=== PATIENT | male | born 1955 | race Caucasian/White ===

== ENCOUNTER 2017-07-18 19:46 | Inpatient (IN) | payer OTHER ==
--- NOTE | 2017-07-18 20:56 | RAD ---
Indication: Syncope. Hit head. Comparison: No relevant prior exams available on the [facility] PACS for comparison. Technique: Upright AP 2033 hours Report: Mild bilateral lower lung zone linear subsegmental atelectasis. No focal pulmonary lesion, pleural effusion, pneumothorax. Upper normal heart size accounting for AP technique. Unremarkable central pulmonary vasculature and mediastinal contours. No thoracic fractures evident. IMPRESSION: Mild bibasilar linear subsegmental atelectasis.
[2017-07-18] MEDS: NS 0.9% 1000 ML* 2,000 ML IV ONE (21:08)
[2017-07-18 21:16] LABS: Hematocrit 39 % (42-52); Hemoglobin 13.4 g/dl (14.0-18.0); Mean Corpuscular HGB Conc 34 g/dl (31-36); Mean Corpuscular Hemoglobin 32 pg (27-31); Mean Corpuscular Volume 94 fL (80-94); Mean Platelet Volume 8 um3 (7.4-10.4); Red Blood Count 4.14 10^6/ul (4.0-5.4); Red Cell Distribution Width 14 % (10.5-15); White Blood Count 12.9 10^3/ul (3.5-10.8)
--- NOTE | 2017-07-18 21:17 | RAD ---
Indication: Syncope; fell and hit head. Comparison: No relevant prior exams available on the [facility] PACS for comparison. Technique: Noncontrast CT vertex of skull through foramen magnum. Report: The sulci, ventricles, and basal cisterns are normal for age. Reza matter white matter differentiation is preserved without evidence for edema. 0.7 cm diameter normal variant dilated perivascular space versus chronic lacunar infarct at the caudal aspect of the LEFT basal ganglia. No intra or extra axial hemorrhage, mass, or fluid collection detected. Unremarkable visualized orbital contents. Unremarkable calvarium and skull base. Unremarkable scalp. The visualized paranasal sinuses and mastoid air spaces are clear. IMPRESSION: 1. No acute intracranial process evident. 2. 0.7 cm diameter normal variant dilated perivascular space versus chronic lacunar infarct at the caudal aspect of the LEFT basal ganglia.
[2017-07-18 21:31] LABS: BUN/Creatinine Ratio 14.3 (8-20); Calcium 8.9 mg/dL (8.6-10.3); EGFR African American 119.9 (>60); EGFR Non-African American 93.2 (>60); Globulin 2.8 g/dL (2-4); Magnesium 2.2 mg/dL (1.9-2.7); Potassium 4.4 mmol/L (3.5-5.0); Total Bilirubin 0.5 mg/dL (0.2-1.0); Total Protein 6.8 g/dL (6.4-8.9)
[2017-07-18] MEDS ORDERED: CMCS: Melatonin (NF) 3 MG TAB PO PRN (22:08)
[2017-07-18] MEDS ORDERED: Ondansetron INJ* 2 MG/ML VIAL IV PRN (22:08)
[2017-07-18] MEDS ORDERED: traMADol TAB* 50 MG PO PRN (22:08)
[2017-07-18] MEDS ORDERED: Acetaminophen TAB* 325 MG PO PRN (22:08)
[2017-07-18] MEDS ORDERED: NS 0.9% 1000 ML* 1,000 ML IV SCH (22:15)
[2017-07-18 22:16] LABS: Urine Bilirubin Negative (Negative); Urine Glucose Negative (Negative); Urine Nitrite Negative (Negative)
--- NOTE | 2017-07-18 23:25 | HP ---
H&P (Free Text) History and Physical: PCP: none Date/Time: 07/18/20172204 CC: syncope HPI: Mr Carrington is a 61YO male w/o significant medical history who reports digging outdoors at home in the heat for 3-4 hours, drank some water, "a couple of beers", and went to a restaurant to eat where he suddenly became light- headed and syncopized for <2 minutes. He states it felt similar to a time when he cut his foot badly and "nearly passed-out at the sight of blood". Upon awakening, he recalls being sweaty and nauseous, but denies palpitations, SOB, and chest pain. During his evaluation in [facility] ED, he developed an asymptomatic burst of VT prompting this request for admission. K is 4.4. Mg++ is 2.2. PMedHx denies Ambulatory Orders NK [No Home Medications Reported] 07/18/17 Allergies No Known Allergies Allergy (Verified 07/18/17 20:01) PSurgHx R ACL repair L shoulder surgery SocHx: 3-4 beers ~3x/week, denies tobacco HX, admits to occasional marijuana use last time today; , lives with his children; full code status FamHx: Mother passed of "heart issue" at 88. Father passed of "brain cancer" at 74. Of 6 siblings, he only knows of a sister with TBI 2nd MVA. ROS: as above, otherwise reviewed and all were negative vitals: Vital Signs Temp 37.3 C 07/18/17 19:53 Pulse 69 07/18/17 23:00 Resp 22 07/18/17 23:00 BP 135/88 07/18/17 22:30 Pulse Ox 93 07/18/17 23:00 Intake & Output 07/17/17 07/18/17 07/18/17 23:59 11:59 23:59 Weight 99.79 kg Constitutional: NAD, normally developed, overweight white male HEENM: atraumatic; sclera/conjunctiva: non-icteric/mildly injected; blephara: normal; hearing: clinically intact; oropharynx: clear, mucosa moist Neck: soft tissue: non-tender; thyroid: normal Pulmonary: clear to auscultation bilaterally, good aeration, no accessory muscle use CV: RR/RR, normal S1S2, no carotid bruit, no jugular venous distention, 2+ B DP/ PT, no edema Abdominal: soft, non-distended, non-tender, no rebound/guarding/rigidity, normoactive bowel sounds, no hepatosplenomegaly or masses, no costovertebral angle tenderness Musculoskeletal: general: grossly intact; gait: stable Integumental: normal appearance and texture of exposed skin Psychiatric orientation: AA&O to PPS affect: calm mood: cooperative eye contact: good to fair content: reliable responses: timely insight: fair to good Testing: Lab Results 07/18/17 07/18/17 07/18/17 Range/Units 21:06 21:06 21:06 WBC 12.9 H (3.5-10.8) 10^3/ul RBC 4.14 (4.0-5.4) 10^6/ul Hgb 13.4 L (14.0-18.0) g/dl Hct 39 L (42-52) % MCV 94 (80-94) fL MCH 32 H (27-31) pg MCHC 34 (31-36) g/dl RDW 14 (10.5-15) % Plt Count 186 (150-450) 10^3/ul MPV 8 (7.4-10.4) um3 Neut % (Auto) 83.3 H (38-83) % Lymph % (Auto) 8.6 L (25-47) % [place] % (Auto) 7.2 (1-9) % Eos % (Auto) 0.5 (0-6) % Baso % (Auto) 0.4 (0-2) % Absolute Neuts (auto) 10.7 H (1.5-7.7) 10^3/ul Absolute Lymphs (auto) 1.1 (1.0-4.8) 10^3/ul Absolute Monos (auto) 0.9 H (0-0.8) 10^3/ul Absolute Eos (auto) 0.1 (0-0.6) 10^3/ul Absolute Basos (auto) 0 (0-0.2) 10^3/ul Absolute Nucleated RBC 0 10^3/ul Nucleated RBC % 0 INR (Anticoag Therapy) (0.89-1.11) APTT (26.0-36.3) seconds Sodium 135 (133-145) mmol/L Potassium 4.4 (3.5-5.0) mmol/L Chloride 104 (101-111) mmol/L Carbon Dioxide 23 (22-32) mmol/L Anion Gap 8 (2-11) mmol/L BUN 12 (6-24) mg/dL Creatinine 0.84 (0.67-1.17) mg/dL Est GFR ( Amer) 119.9 (>60) Est GFR (Non-Af Amer) 93.2 (>60) BUN/Creatinine Ratio 14.3 (8-20) Glucose 99 (70-100) mg/dL Lactic Acid (0.5-2.0) mmol/L Calcium 8.9 (8.6-10.3) mg/dL Magnesium 2.2 (1.9-2.7) mg/dL Total Bilirubin 0.50 (0.2-1.0) mg/dL AST 28 (13-39) U/L ALT 24 (7-52) U/L Alkaline Phosphatase 54 (34-104) U/L Total Creatine Kinase 188 (10-223) U/L Troponin I 0.00 (<0.04) ng/mL B-Natriuretic Peptide 52 ( - 100) pg/mL Total Protein 6.8 (6.4-8.9) g/dL Albumin 4.0 (3.2-5.2) g/dL Globulin 2.8 (2-4) g/dL Albumin/Globulin Ratio 1.4 (1-3) Urine Color Urine Appearance Urine pH (5-9) Ur Specific [place] (1.010-1.030) Urine Protein (Negative) Urine Ketones (Negative) Urine Blood (Negative) Urine Nitrate (Negative) Urine Bilirubin (Negative) Urine Urobilinogen (Negative) Ur Leukocyte Esterase (Negative) Urine Glucose (Negative) 07/18/17 07/18/17 07/18/17 Range/Units 21:06 21:23 22:06 WBC (3.5-10.8) 10^3/ul RBC (4.0-5.4) 10^6/ul Hgb (14.0-18.0) g/dl Hct (42-52) % MCV (80-94) fL MCH (27-31) pg MCHC (31-36) g/dl RDW (10.5-15) % Plt Count (150-450) 10^3/ul MPV (7.4-10.4) um3 Neut % (Auto) (38-83) % Lymph % (Auto) (25-47) % [place] % (Auto) (1-9) % Eos % (Auto) (0-6) % Baso % (Auto) (0-2) % Absolute Neuts (auto) (1.5-7.7) 10^3/ul Absolute Lymphs (auto) (1.0-4.8) 10^3/ul Absolute Monos (auto) (0-0.8) 10^3/ul Absolute Eos (auto) (0-0.6) 10^3/ul Absolute Basos (auto) (0-0.2) 10^3/ul Absolute Nucleated RBC 10^3/ul Nucleated RBC % INR (Anticoag Therapy) 0.91 (0.89-1.11) APTT 25.2 L (26.0-36.3) seconds Sodium (133-145) mmol/L Potassium (3.5-5.0) mmol/L Chloride (101-111) mmol/L Carbon Dioxide (22-32) mmol/L Anion Gap (2-11) mmol/L BUN (6-24) mg/dL Creatinine (0.67-1.17) mg/dL Est GFR ( Amer) (>60) Est GFR (Non-Af Amer) (>60) BUN/Creatinine Ratio (8-20) Glucose (70-100) mg/dL Lactic Acid 1.5 (0.5-2.0) mmol/L Calcium (8.6-10.3) mg/dL Magnesium (1.9-2.7) mg/dL Total Bilirubin (0.2-1.0) mg/dL AST (13-39) U/L ALT (7-52) U/L Alkaline Phosphatase (34-104) U/L Total Creatine Kinase (10-223) U/L Troponin I (<0.04) ng/mL B-Natriuretic Peptide ( - 100) pg/mL Total Protein (6.4-8.9) g/dL Albumin (3.2-5.2) g/dL Globulin (2-4) g/dL Albumin/Globulin Ratio (1-3) Urine Color Yellow Urine Appearance Clear Urine pH 6.0 (5-9) Ur Specific [place] 1.005 L (1.010-1.030) Urine Protein Negative (Negative) Urine Ketones Negative (Negative) Urine Blood Negative (Negative) Urine Nitrate Negative (Negative) Urine Bilirubin Negative (Negative) Urine Urobilinogen Negative (Negative) Ur Leukocyte Esterase Negative (Negative) Urine Glucose Negative (Negative) ECG, personally reviewed: NSR rate 76, no ischemia CXR, personally reviewed: IMPRESSION: Mild bibasilar linear subsegmental atelectasis. CT brain WO, personally reviewed: IMPRESSION: 1. No acute intracranial process evident. 2. 0.7 cm diameter normal variant dilated perivascular space versus chronic lacunar infarct at the caudal aspect of the LEFT basal ganglia. Impression: 61M presenting with syncope and finding of brief VT on ED telemetry DIAGNOSIS & PLAN Primary syncope : dDx: VT vs seizure vs other : telemetry : Joceline Gonzalez MD cardiology consulted by Janeth Velasquez MD ED; will evaluate in AM : supplemental oxygen : K >4, Mg >2 : ICU monitoring : ECHO in AM : trend troponin : add on TSH to ED labs : supportive care Admission Rational: inpatient for syncope felt to be 2nd VT DVTp: heparin SQ @ SCDs Code Status: full HCP: children
--- NOTE | 2017-07-18 23:55 | ED ---
Moise Barnhart Rebecca, scribed for Tyrese Velasquez on 07/18/17 at 8 . Syncope/Near Syncope - HPI Summary HPI Summary: Pt is a 61 y/o M BIBA who presents to ED s/p syncopal episode. At approximately 1900 today the pt was out to dinner with his partner when he had sudden onset LOC while sitting down. Partner reports that he fell onto bricks that were next to the stove in the restaurant and maintained LOC for 1-2 minutes. Pt attributes LOC to exhaustion, stating he had been doing physical work outside for 3 hours and was outside in the sun for an extended time today. Sx alleviated by spontaneous resolution. Denies JASON, CP and palpitations prior to and after episode. Denies weakness, numbness and confusion. No prior similar episodes. Reports that he had about 5 beers tonight and denies any other drug use. No PMHx seizures. - History Of Current Complaint Chief Complaint: EDSyncope Time Seen by Provider: 07/18/17 20:02 Hx Obtained From: Patient, Family/Regional Manager - Partner Onset/Duration: Sudden Onset, Lasting Minutes - 1-2 minutes, Resolved Timing: Frequency Of Episodes - 1 episode, lasting 1-2 minutes Context: Witnessed, Loss Of Consciousness Activity At Onset: At Rest Aggravating Factor(s): Other - Exhaustion, per pt Alleviating Factor(s): Spontaneous Resolution Associated Signs And Symptoms: Negative Frequency: Episodes x___ - 1, Episodes Lasting ____ (in Mins/Days/Weeks/Years) - 1-2 minutes - Allergies/Home Medications Allergies/Adverse Reactions: Allergies Allergy/AdvReac Type Severity Reaction Status Date / Time No Known Allergies Allergy Verified 07/18/17 20:01 Home Medications: Home Medications NK [No Home Medications Reported] 07/18/17 [History Confirmed 07/18/17] PMH/Surg Hx/FS Hx/Imm Hx Endocrine/Hematology History: Denies: Hx Diabetes Cardiovascular History: Denies: Hx Coronary Artery Disease, Hx Hypertension Neurological History: Denies: Hx Seizures - Immunization History Date of Tetanus Vaccine: unknown Infectious Disease History: No Infectious Disease History: Denies: Traveled Outside the [place] in Last 30 Days - Family History Known Family History: Negative: Cardiac Disease, Hypertension, Diabetes - Social History Alcohol Use: Occasionally Substance Use Type: Reports: None Smoking Status (MU): Never Smoked Tobacco Review of Systems Negative: Palpitations, Chest Pain Neurological: Other - NEGATIVE: confusion Positive: Syncope - 1 epiosde of LOC - resolved. Negative: Headache, Weakness, Numbness All Other Systems Reviewed And Are Negative: Yes Physical Exam - Summary Physical Exam Summary: Appearance: Well appearing, no pain distress Skin: warm, dry, reflects adequate perfusion Head/face: normal Eyes: EOMI, CHERRY ENT: normal Neck: supple, nontender Respiratory: CTA, breath sounds present Cardiovascular: RRR, pulses symmetrical Abdomen: nontender, soft Bowel: present Musculoskeletal: normal, strength/ROM intact Neuro: normal, sensory motor intact, A&Ox3 Triage Information Reviewed: Yes Vital Signs On Initial Exam: Initial Vitals BP 122/75 07/18/17 19:51 Vital Signs Reviewed: Yes - [place] Coma Scale Best Eye Response: 4 - Spontaneous Best Motor Response: 6 - Obeys Commands Best Verbal Response: 5 - Oriented Coma Scale Total: 15 Diagnostics - Vital Signs Vital Signs Temp Pulse Resp BP Pulse Ox 07/18/17 20:00 72 20 108/91 93 07/18/17 19:53 99.1 F 67 17 122/75 93 07/18/17 19:51 122/75 - Laboratory Lab Results: Lab Results 07/18/17 07/18/17 07/18/17 Range/Units 21:06 21:06 21:06 WBC 12.9 H (3.5-10.8) 10^3/ul RBC 4.14 (4.0-5.4) 10^6/ul Hgb 13.4 L (14.0-18.0) g/dl Hct 39 L (42-52) % MCV 94 (80-94) fL MCH 32 H (27-31) pg MCHC 34 (31-36) g/dl RDW 14 (10.5-15) % Plt Count 186 (150-450) 10^3/ul MPV 8 (7.4-10.4) um3 Neut % (Auto) 83.3 H (38-83) % Lymph % (Auto) 8.6 L (25-47) % [place] % (Auto) 7.2 (1-9) % Eos % (Auto) 0.5 (0-6) % Baso % (Auto) 0.4 (0-2) % Absolute Neuts (auto) 10.7 H (1.5-7.7) 10^3/ul Absolute Lymphs (auto) 1.1 (1.0-4.8) 10^3/ul Absolute Monos (auto) 0.9 H (0-0.8) 10^3/ul Absolute Eos (auto) 0.1 (0-0.6) 10^3/ul Absolute Basos (auto) 0 (0-0.2) 10^3/ul Absolute Nucleated RBC 0 10^3/ul Nucleated RBC % 0 INR (Anticoag Therapy) (0.89-1.11) APTT (26.0-36.3) seconds Sodium 135 (133-145) mmol/L Potassium 4.4 (3.5-5.0) mmol/L Chloride 104 (101-111) mmol/L Carbon Dioxide 23 (22-32) mmol/L Anion Gap 8 (2-11) mmol/L BUN 12 (6-24) mg/dL Creatinine 0.84 (0.67-1.17) mg/dL Est GFR ( Amer) 119.9 (>60) Est GFR (Non-Af Amer) 93.2 (>60) BUN/Creatinine Ratio 14.3 (8-20) Glucose 99 (70-100) mg/dL Lactic Acid (0.5-2.0) mmol/L Calcium 8.9 (8.6-10.3) mg/dL Magnesium 2.2 (1.9-2.7) mg/dL Total Bilirubin 0.50 (0.2-1.0) mg/dL AST 28 (13-39) U/L ALT 24 (7-52) U/L Alkaline Phosphatase 54 (34-104) U/L Total Creatine Kinase 188 (10-223) U/L Troponin I 0.00 (<0.04) ng/mL B-Natriuretic Peptide 52 ( - 100) pg/mL Total Protein 6.8 (6.4-8.9) g/dL Albumin 4.0 (3.2-5.2) g/dL Globulin 2.8 (2-4) g/dL Albumin/Globulin Ratio 1.4 (1-3) TSH Pending 07/18/17 07/18/17 Range/Units 21:06 21:23 WBC (3.5-10.8) 10^3/ul RBC (4.0-5.4) 10^6/ul Hgb (14.0-18.0) g/dl Hct (42-52) % MCV (80-94) fL MCH (27-31) pg MCHC (31-36) g/dl RDW (10.5-15) % Plt Count (150-450) 10^3/ul MPV (7.4-10.4) um3 Neut % (Auto) (38-83) % Lymph % (Auto) (25-47) % [place] % (Auto) (1-9) % Eos % (Auto) (0-6) % Baso % (Auto) (0-2) % Absolute Neuts (auto) (1.5-7.7) 10^3/ul Absolute Lymphs (auto) (1.0-4.8) 10^3/ul Absolute Monos (auto) (0-0.8) 10^3/ul Absolute Eos (auto) (0-0.6) 10^3/ul Absolute Basos (auto) (0-0.2) 10^3/ul Absolute Nucleated RBC 10^3/ul Nucleated RBC % INR (Anticoag Therapy) 0.91 (0.89-1.11) APTT 25.2 L (26.0-36.3) seconds Sodium (133-145) mmol/L Potassium (3.5-5.0) mmol/L Chloride (101-111) mmol/L Carbon Dioxide (22-32) mmol/L Anion Gap (2-11) mmol/L BUN (6-24) mg/dL Creatinine (0.67-1.17) mg/dL Est GFR ( Amer) (>60) Est GFR (Non-Af Amer) (>60) BUN/Creatinine Ratio (8-20) Glucose (70-100) mg/dL Lactic Acid 1.5 (0.5-2.0) mmol/L Calcium (8.6-10.3) mg/dL Magnesium (1.9-2.7) mg/dL Total Bilirubin (0.2-1.0) mg/dL AST (13-39) U/L ALT (7-52) U/L Alkaline Phosphatase (34-104) U/L Total Creatine Kinase (10-223) U/L Troponin I (<0.04) ng/mL B-Natriuretic Peptide ( - 100) pg/mL Total Protein (6.4-8.9) g/dL Albumin (3.2-5.2) g/dL Globulin (2-4) g/dL Albumin/Globulin Ratio (1-3) TSH Result Diagrams: 07/18/17 21:06 07/18/17 21:06 Lab Statement: Any lab studies that have been ordered have been reviewed, and results considered in the medical decision making process. - Radiology CXR Xray Interpretation: Positive (See Comments) - Mild bibasilar linear subsegmental atelectasis. ED physician reviewed radiology report and agrees. Radiology Interpretation Completed By: Radiologist - CT Brain CT CT Interpretation: No Acute Changes - 1. No acute intracranial process evident. 2. 0.7 cm diameter normal variant dilated perivascular space versus chronic lacunar infarct at the caudal aspect of the LEFT basal ganglia. ED physician reviewed radiology report and agrees. CT Interpretation Completed By: Radiologist - EKG 2049 Cardiac Rate: NL - 76 bpm EKG Rhythm: Sinus Rhythm EKG Interpretation: No acute changes Re-Evaluation - Re-Evaluation First Eval Re-Evaluation Time: 22:19 Comment: Discussed results and plan to admit. Course/Dx Assessment/Plan: Pt is a 61 y/o M BIBA who presents to ED s/p syncopal episode. At approximately 1900 today the pt was out to dinner with his partner when he had sudden onset LOC while sitting down. Partner reports that he fell onto bricks that were next to the stove in the restaurant and maintained LOC for 1-2 minutes. Pt attributes LOC to exhaustion, stating he had been doing physical work outside for 3 hours and was outside in the sun for an extended time today. Sx alleviated by spontaneous resolution. Denies JASON, CP and palpitations prior to and after episode. Denies weakness, numbness and confusion. CXR reveals mild bibasilar linear subsegmental atelectasis. EKG is sinus rhythm with no acute changes. Brain CT reveals no acute findings. Troponin of 0.00. In the ED course , pt received fluids. Discussed care of pt with Dr. Castaneda who accepts pt for admission. Discussed care of pt with Dr. Gonzalez who will evaluate the pt in the morning and requsted an update if the pt's status changes. Pt will be admitted with Dx of syncope and nonsustained V-tach. Pt understands and agrees. Patient medications reviewed this visit. - Diagnoses Provider Diagnoses: Syncope, Nonsustained ventricular tachycardia - Physician Notifications Discussed Care of Patient With: Brandon Castaneda Time Discussed With Above Provider: 21:55 Instructed by Provider To: Other - Accepts pt for admission. Discussed care of pt with Dr. Gonzalez at 2212 who will evaluate the pt in the morning and requsted an update if the pt's status changes. - Critical Care Time Critical Care Time: 30-74 min Discharge - Discharge Plan Condition: Stable Disposition: ADMITTED TO [facility] The documentation as recorded by the Moise alicea Rebecca accurately reflects the service I personally performed and the decisions made by Eva fraser Emmanuel.
[2017-07-19] LABS: TSH (Thyroid Stimulating Horm) 8.19 mcIU/mL (0.34-5.60)
[2017-07-19] MEDS: Omeprazole CAP* 20 MG PO SCH (05:51)
[2017-07-19 06:34] LABS: Hematocrit 36 % (42-52); Hemoglobin 12.5 g/dl (14.0-18.0); Mean Corpuscular HGB Conc 34 g/dl (31-36); Mean Corpuscular Hemoglobin 33 pg (27-31); Mean Corpuscular Volume 94 fL (80-94); Mean Platelet Volume 8 um3 (7.4-10.4); Red Blood Count 3.84 10^6/ul (4.0-5.4); Red Cell Distribution Width 14 % (10.5-15); White Blood Count 6.8 10^3/ul (3.5-10.8)
--- NOTE | 2017-07-19 09:36 | PN ---
Subjective Date of Service: 07/19/17 Interval History: Patient admitted overnight w/ syncope, had documented VT on monitor in ER. In ICU overnight, had 5-beat run SVT. Patient denies palpitations, SOB, chest pain. Family History: Unchanged from Admission Social History: Unchanged from Admission Past Medical History: Unchanged from Admission Objective Active Medications: Acetaminophen (Tylenol Tab*) 650 mg PO Q6H PRN PRN Reason: FEVER/PAIN Heparin Sodium (Porcine) (Heparin Vial(*)) 5,000 units SUBCUT 0600,1400,2200 [facility] Sodium Chloride (Ns 0.9% 1000 Ml*) 1,000 mls @ 50 mls/hr IV PER RATE [facility] Last Admin: 07/19/17 00:40 Dose: 50 mls/hr Melatonin (Melatonin (Nf)) 3 mg PO BEDTIME PRN; Protocol PRN Reason: Sleep Omeprazole (Prilosec Cap*) 20 mg PO DAILY@0600 [facility] Last Admin: 07/19/17 05:51 Dose: Not Given Ondansetron HCl (Zofran Inj*) 4 mg IV Q6H PRN PRN Reason: NAUSEA Tramadol HCl (Ultram*) 50 mg PO Q6H PRN PRN Reason: PAIN Vital Signs 07/19/17 07/19/17 07/19/17 02:30 02:45 03:00 Temperature Pulse Rate 57 55 62 Respiratory 19 19 20 Rate Blood Pressure 129/82 129/76 130/86 (mmHg) O2 Sat by Pulse 96 95 95 Oximetry 07/19/17 07/19/17 07/19/17 04:01 05:00 05:01 Temperature Pulse Rate 55 56 59 Respiratory 18 20 19 Rate Blood Pressure 119/82 (mmHg) O2 Sat by Pulse 94 91 94 Oximetry 07/19/17 07/19/17 07/19/17 06:00 06:01 07:00 Temperature Pulse Rate 54 53 57 Respiratory 17 17 19 Rate Blood Pressure 129/90 133/85 (mmHg) O2 Sat by Pulse 95 95 96 Oximetry 07/19/17 07/19/17 07/19/17 07:01 07:45 08:43 Temperature 37.1 C Pulse Rate 56 Respiratory 17 Rate Blood Pressure (mmHg) O2 Sat by Pulse 96 95 Oximetry Oxygen Devices in Use Now: None Appearance: no distress Eyes: No Scleral Icterus Ears/Nose/Mouth/Throat: Clear Oropharnyx Neck: NL Appearance and Movements; NL JVP Respiratory: Clear to Auscultation Cardiovascular: NL Sounds; No Murmurs; No JVD, RRR Abdominal: NL Sounds; No Tenderness; No Distention Lymphatic: No Cervical Adenopathy Extremities: No Edema Skin: No Rash or Ulcers Neurological: Alert and Oriented x 3 Lines/Tubes/Other Access: Clean, Dry and Intact Peripheral IV Result Diagrams: 07/19/17 06:15 07/18/17 21:06 Additional Lab and Data: Lab Results Troponin negative X3 Diagnostic Imaging: echo full read pending, EF normal per Dr Gonzalez Assess/Plan/Problems-Billing Assessment: 61 year old man w/ no PMH, admitted w/ syncope and VT on monitor in ED - Patient Problems (1) Syncope Current Visit: Yes Status: Acute Priority: High Code(s): R55 - SYNCOPE AND COLLAPSE SNOMED Code(s): 322699004 Comment: Discussed differential of syncope with patient, including vagal issues, and hypovolemia. He is interested in alternative explanations that do not include rhythm disturbance. (2) Ventricular tachycardia (paroxysmal) Current Visit: Yes Status: Acute Priority: High Code(s): I47.2 - VENTRICULAR TACHYCARDIA SNOMED Code(s): 36008803 Comment: -Discussed electrical, structural, and ischemic causes of VT with patient. Strongly advised staying overnight for treadmill stress test. -transferred to telemetry (3) Hypothyroid Current Visit: Yes Status: Acute Priority: Medium Code(s): E03.9 - HYPOTHYROIDISM, UNSPECIFIED SNOMED Code(s): 78122401 Comment: -TSH consistent with hypothyroid state -unlikely related to arrhythmia -Will start Synthroid. Status and Disposition: Due to severity of rhythm, requires another 24h of telemetry monitoring and then stress test
--- NOTE | 2017-07-19 10:56 | ECHO ---
Patient: [facility] Rec#: [id number] : 1955 Date: 07/19/2017 Age: 61y Height: 185.4 cm / 73.0 in Weight: 99.8 kg / 220.0 lbs Sex: M BSA: 2.2 Room#: ICU 3 Admit Date#: 07/18/2017 Type: Inpatient Referring: Brandon Castaneda MD Reading: Laisha Gonzalez MD Railroad Accountant: Barbara Venegas RN RDCS Transthoracic Echocardiogram Indication: Syncope, V. Tach BP: 133/85 HR: 69 Rhythm: NSR with PVCs Findings History: No significant prior medical history, ETOH use Technical Comments: The study quality is fair. Completed at 0840. Left Ventricle: The left ventricular chamber size is mildly dilated. Mild concentric left ventricular hypertrophy is observed. There is increased basal septal hypertrophy noted without evidence of an increased gradient across the left ventricular outflow tract. Global left ventricular wall motion and contractility are within normal limits. There is normal left ventricular systolic function. The estimated ejection fraction is 60-65%. Abnormal left ventricular diastolic function is observed. Left Atrium: The left atrial chamber size is normal. Right Ventricle: The right ventricle wall thickness is mildly increased. The right ventricular cavity size is normal. The right ventricular global systolic function is normal. Right Atrium: The right atrium is mildly dilated. The interatrial septum appears lipomatous. Aortic Valve: The aortic valve is trileaflet. The aortic valve leaflets are mildly thickened. There is no evidence of aortic regurgitation. There is no evidence of aortic stenosis. Mitral Valve: The mitral valve leaflets are mildly thickened. There is a trace of mitral regurgitation. There is no evidence of mitral stenosis. Tricuspid Valve: The tricuspid valve leaflets are normal. There is trace tricuspid regurgitation. Unable to estimate the right ventricular systolic pressure. Pulmonic Valve: The pulmonic valve structure is not well visualized. Pericardium: There is no significant pericardial effusion. A pericardial fat pad is visualized. Aorta: There is no dilatation of the ascending aorta. There is no dilatation of the aortic arch. There is mild dilatation of the aortic root. Pulmonary Artery: The main pulmonary artery is not well visualized. Venous: The inferior vena cava is dilated. There is less than 50% respiratory change in the inferior vena cava dimension. Conclusions The left ventricular chamber size is mildly dilated. Mild concentric left ventricular hypertrophy is observed. Global left ventricular wall motion and contractility are within normal limits. The estimated ejection fraction is 60-65%. Abnormal left ventricular diastolic function is observed. The right ventricle wall thickness is mildly increased. The right ventricular global systolic function is normal. Mild valvular sclerosis with normal function. There is a trace of mitral regurgitation. There is trace tricuspid regurgitation. No prior echo to compare. Measurements Name Value Normal Range RVIDd (AP) 2D 3.1 cm (0.9 - 2.6) RVDdMajor (2D) 2.9 cm (2.2 - 4.4) RVAW (2D) 0.8 cm (0.2 - 0.5) RAd ISD 4CH 5.9 cm (3.4 - 4.9) RA (A4C)W 4 cm (2.9 - 4.6) IVSd (2D) 1.3 cm (0.6 - 1) LVPWd (2D) 1.3 cm (0.6 - 1) LVIDd (2D) 5.8 cm (3.6 - 5.4) LVIDs (2D) 3.8 cm - LV FS (2D) 34 % (25 - 45) Aortic Annulus 2.7 cm (1.4 - 2.6) Ao root diameter (2D) 4 cm (2.1 - 3.5) Ascending Ao 3.4 cm (2.1 - 3.4) Aortic arch 2.6 cm (1.8 - 3.4) LA dimension (AP) 2D 3.7 cm (2.3 - 3.8) LAd ISD 4CH 4.4 cm (2.9 - 5.3) LA ISD 4CH W 4 cm (2.5 - 4.5) Name Value Normal Range LA ESV SP 4CH (A/L) 40.4 ml - LA ESV SP 2CH (A/L) 53.7 ml - LA ESV BP (A/L) 47.8 ml - LA ESV BP (A/L) index 21.3 ml/m2 - LA ESV SP 4CH (MOD) 35.5 ml - LA ESV SP 2CH (MOD) 50 ml - Name Value Normal Range MV E-wave Vmax 1.1 m/sec - MV deceleration time 254 msec - MV A-wave Vmax 1.2 m/sec - MV E:A ratio 0.96 ratio - LV septal e' Vmax 0.08 m/sec - LV lateral e' Vmax 0.1 m/sec - LV E:e' septal ratio 13.8 ratio - LV E:e' lateral ratio 11 ratio - Name Value Normal Range AV Vmax 1.6 m/sec - AV VTI 32.4 cm - AV peak gradient 9.6 mmHg - AV mean gradient 5.2 mmHg - LVOT Vmax 1.4 m/sec - LVOT VTI 30.7 cm - LVOT peak gradient 7.4 mmHg - LVOT mean gradient 3.8 mmHg - MADDY Vmax 0.99 m/sec - Name Value Normal Range IVC diameter 2.9 cm - Name Value Normal Range PV Vmax 0.79 m/sec -
[2017-07-19] MEDS: Heparin VIAL(*) 5000 UNITS/ML VIAL (FIVE THOUSAND) SUBCUT SCH (16:48)
--- NOTE | 2017-07-19 18:52 | CONS ---
CC: Hospitalist; [facility]* CONSULTATION REPORT: DATE OF CONSULT: 07/19/17 REASON FOR CONSULTATION: Syncope and nonsustained ventricular tachycardia. HISTORY OF PRESENT ILLNESS: Mr. Carrington is a 61-year-old patient who has generally been healthy. Yesterday, on the day of admission, the patient had not eaten much. 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 The patient states he was seated, had not started to eat dinner at all and suddenly felt very dizzy as if he was going to faint and then fell off the bar stool. When he woke up, he thinks he tried to get sit up too soon and felt poorly. The ambulance report states that his girlfriend who witnessed the event said he clearly lost consciousness, but it was brief. On their arrival, he was pale and diaphoretic and that he felt overheated. They document and the patient concurs that he had had 4 beers in the restaurant and several on the boat earlier in the day. The ambulance records note that his initial blood pressure was 122/76 with a pulse of 63, but apparently the local fire department found his blood pressure very low and hard to obtain prior to arrival of the ambulance service. The patient states the he fainted before 1 time when he cut his finger at the sight of blood and that he has done it when he had been dehydrated. The patient did smoke marijuana that day in addition to the beer, which he does not typically do or has not done in a while. He denies any feeling poorly prior to this. He denies any awareness of palpitations or pounding of his chest at any time. He denies orthopnea, PND, chest pain, pressure, heaviness, or exercise intolerance. PAST MEDICAL HISTORY: The patient has no past medical history, but he has not been seen by family medicine/primary care in a long time. PAST SURGICAL HISTORY: Includes right ACL repair and left shoulder surgery. MEDICATIONS: The patient was on no outpatient medications. ALLERGIES: No known drug allergies. FAMILY HISTORY: Significant that his mother had heart problems and last year at the age of 88, but in talking to the patient it sounds like this was valvular heart disease, probably aortic valve disease. His father had a history of brain cancer and at age 74. He is 1 of 7 siblings, who he says do not have any active health problems. 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 He does drink beer regularly. He said he was off for year and a half. He recently resumed smoking marijuana and denies any other recreational drug use. REVIEW OF SYSTEMS: Negative for recent fevers, chills, sweats. No recent decline in exercise ability. No orthopnea. No PND. No chest pain, pressure, heaviness. No palpations. All other 14-point review of systems was unremarkable. PHYSICAL EXAM: The patient is 6 feet 2 inches, weighs 247 pounds with a BMI of 32. Vitals: On arrival to the emergency department yesterday at 8 p.m., blood pressure 122/75, pulse was 68 and regular, temperature 99.1 and oxygen saturation 92-93% on room air. Current blood pressure 164/99, pulse is 66 and regular, respiratory rate 22, oxygen saturation 95% on room air and he has been afebrile. General Appearance : Somewhat overweight, somewhat older gentleman, lying in bed, appears a bit disheveled, in no acute distress. Psychologic: Calm, cooperative, pleasant. Neurologic: Awake, alert, oriented to person, place, and time. Cranial nerves II through XII are intact grossly. Normal sensory and motor function in the upper and lower extremities in the bed, I did not watch him ambulate. Skin: Warm, dry. No cyanosis, rashes or other abnormalities. HEENT: Pupils are equal and round. Mucous membranes are moist. Neck: Without increased JVP appreciated. Good carotid pulses without audible bruits. Lungs: Clear with good effort. No wheezes, rales, or rhonchi. Coronary: S1, S2, regular. No murmurs, rubs, or extrasystoles. Abdomen: Active bowel sounds, soft, nontender. No hepatosplenomegaly. No bruits. Lower Extremities: Good femoral pulses, free of bruits and the distal extremities are free of edema and warm. DIAGNOSTIC STUDIES/LAB DATA: ECG on arrival 07/18/17 shows normal sinus rhythm , 76 beats a minute, QRS axis -30. Normal AV and IV conduction times. He does have an R' in V1 consistent with an incomplete right bundle branch block. ST segments are normal even in V1. Rhythm strips show a 8-beat run of monomorphic ventricular tachycardia at 08:24 p.m. in the ED last night. Labs, on arrival white count 12.9, hemoglobin 13.4, hematocrit 39, and platelets 186. Today white count 6.8, hemoglobin 12.5, hematocrit 36, platelets 160. INR 0.91, PTT 25.2. Sodium 135, potassium 4.4, chloride 104, bicarb 23, glucose 99, BUN 12, creatinine 0.84, lactic acid 1.5, magnesium 2.2, ALT 24. Troponins x3 are 0.00. TSH 8.19. Urinalysis, specific gravity 1.005 , and unremarkable; no esterase, nitrites, glucose or protein spilled. Chest x-ray showed no evidence of acute disease, mild atelectasis. Brain CT, no acute process. 0.7 cm diameter, normal variant dilated perivascular space versus chronic lacunar infarct in the left basal ganglia. An echocardiogram done this morning shows mild left ventricular hypertrophy with an ejection fraction of 60%- 65% with abnormal diastolic function, mild right ventricular hypertrophy, valvular sclerosis with trace mitral and trace tricuspid insufficiency. IMPRESSION AND PLAN: In summary, Geovanni Carrington is a 61-year-old gentleman who lost consciousness, sitting at a bar after multiple beers, not eating much, possibly dehydrated with a history of vagal type syncope in the past, fainting at the sight of blood, but additionally had an 8-beat run of monomorphic nonsustained ventricular tachycardia in the emergency department. The etiology of the syncopal episode could have been vagal related to vasodilatation, relative dehydration, but with his history of monomorphic ventricular tachycardia, it raises the possibility of atherosclerotic heart disease and/or channelopathy. I recommended checking a lipid panel, treating hypertension, possibly considering rate lowering agent such as a low dose beta-justin, calcium channel justin. I feel he needs a treadmill stress test this admission and it cannot be done today. So, we can observe him on telemetry 1 more day. His mild thyroid abnormality is noted and this should be followed up to look into possible hypothyroid or Cirilo's. His mild anemia was noted and this could be evaluated as an inpatient or outpatient. I discussed stopping alcohol or cutting down to 1 beer a day. He says he stopped for year and a half and is understanding he should get off the alcohol and be also more careful about avoiding dehydration. I do feel based on his past history of fainting at the sight of blood that he does have vagal syncope and low dose beta-justin on discharge may help this. If his ischemic workup is negative, then I think treatment of atherosclerotic risk, blood pressure, if necessary cholesterol, change in lifestyle and follow up with Cardiology (myself) would be appropriate. We can decide as an outpatient if he needs additional monitoring or EP evaluation. Our primary raises the possibility of Brugada syndrome, but he does not have a typical morphology in V1 or V2 for this and the history of this occurring of these syncopal events make this less likely as well. [id number]/[facility] #: [id number] GUILLERMINA
[2017-07-20] MEDS: Heparin VIAL(*) 5000 UNITS/ML VIAL (FIVE THOUSAND) SUBCUT SCH ×2 (05:33→14:00)
[2017-07-20] MEDS: Omeprazole CAP* 20 MG PO SCH (05:33)
[2017-07-20] MEDS ORDERED: Levothyroxine TAB* 25 MCG TAB PO SCH (06:00)
[2017-07-20] MEDS ORDERED: Perflutren Lipid Microsphere* 3 ML VIAL ONE (11:18)
[2017-07-20 15:24] VITALS: BP 160/94
--- NOTE | 2017-07-21 05:49 | DS ---
CC: Dr. Laisha Gonzalez* DISCHARGE SUMMARY: DATE OF ADMISSION: 07/18/17 DATE OF DISCHARGE: 07/20/17 PRIMARY CARE PROVIDER: None. Referral made to [facility], also to Dr. Laisha Gonzalez. DIAGNOSIS: Syncope. SECONDARY DIAGNOSES: Include: 1. Hypotension. 2. Elevated TSH. MEDICATIONS ON DISCHARGE: None. PERTINENT LABORATORY DATA: Troponin I 0.00, 3 consecutive checks. PROCEDURES PERFORMED DURING HOSPITAL STAY: Stress echo, impression: The patient with syncope and SVT, baseline EKG, normal sinus rhythm. The patient exercised for 10 minutes 15 seconds. No chest pain or arrhythmia. No ST-T changes. Baseline echo: Normal LV size and function. Stress images: Normal augmentation and LV image obtained with definite enhancement. Conclusion: Normal maximal stress echo, no evidence of ischemia. No arrhythmias, low risk study. HISTORY OF PRESENT ILLNESS AND HOSPITAL COURSE: This is a 61-year-old man with past medical history as outlined in the history of present illness. On the day of admission, he was out on a boat all day on a hot day, did not eat anything, was not drinking any water, had approximately 4 to 6 beers. [place] [facility] went to get food and was at the bar, had one additional drink and had episode of syncope prior to eating. He presented to the hospital, there was reportedly an 8- beat run of monomorphic nonsustained ventricular tachycardia in the emergency room. He was monitored on telemetry without additional events. He underwent a stress test with results as indicated above. Ultimately, it seems like this patient had an episode of syncope in the setting of dehydration and alcohol use. He was counseled duration for alcohol cessation. We discussed tension. He would like to follow up with Dr. Gonzalez and discuss antihypertensives at that time. He seems motivated to discontinue alcohol as well as make lifestyle changes including decreasing salt in his diet. Reasons to return to the hospital including, but not limited to, chest pain, shortness of breath, nausea, vomiting, lightheadedness, loss of consciousness or near loss of consciousness, bleeding from any source discussed with the patient. FOLLOWUP INSTRUCTIONS: At followup, please: 1. Evaluate for continued tension. 2. Evaluate TSH, free T3 and T4 while not hospitalized in the absence of acute event. TIME SPENT: Greater than 60 minutes was spent on discharge of the patient of which greater than half was spent [id number] with the patient. [id number]/[facility] #: [id number] GUILLERMINA
== END 2017-07-20 15:21 | disposition home or self-care (01) | DRG 309 ==
LOC: ED 19:46 → ICU 22:03 → MEDTELE 07-19 09:28
PROVIDERS: ADMIT Hospitalist; ATTEND Internal Medicine
DX: I47.2 Ventricular tachycardia (principal); J98.11 Atelectasis; E86.0 Dehydration; E03.9 Hypothyroidism, unspecified; I95.1 Orthostatic hypotension; Z80.8 Family history of malignant neoplasm of other organs or systems; Z82.49 Family history of ischemic heart disease and other diseases of the circulatory system
CPT/HCPCS: 36415; 70450; 71010; 80053; 81003; 82550; 83605; 83735; 83880; 84443; 84484; 85025; 85610; 85730; 93005; 93306; 93351; 94760; A9270-GY; C8930

== ENCOUNTER 2020-02-15 11:24 | Emergency (ER) | payer BC, OTHER ==
[2020-02-15 11:52] VITALS: BP 165/96
[2020-02-15] MEDS ORDERED: Lidocaine 1% MPF ** 5 ML VIAL IM ONE (12:22)
[2020-02-15] MEDS ORDERED: cefTRIAXone VIAL(*) 1,000 MG VIAL IM ONE (12:22)
--- NOTE | 2020-02-15 12:23 | UC ---
Skin Complaint HPI - HPI Summary HPI Summary: Patient is a 64yo male presenting with "rash on upper back" x2-3 days. Patient states he thinks he "might have had a bug bite" and is concerned for lyme disease. Notes mild intermittent itching but notes "it feels really warm like sunburn." Denies any drainage or bleeding. Denies fever, chills, body aches. Denies n/v. Denies taking anything or applying anything topically for symptom relief. Denies anything like this in the past. Denies prior MRSA infection. - History of Current Complaint Chief Complaint: UCSkin Stated Complaint: RASH ON BACK Hx Obtained From: Patient Pain Intensity: 0 - Allergy/Home Medications Allergies/Adverse Reactions: Allergies Allergy/AdvReac Type Severity Reaction Status Date / Time No Known Allergies Allergy Verified 02/15/20 11:46 Home Medications: Home Medications Sulfamethox/Trimethoprim DS* [Bactrim DS 800/160 TAB*] 1 tab PO BID #20 tab [Rx] PMH/Surg Hx/FS Hx/Imm Hx Previously Healthy: Yes - Surgical History Surgical History: Yes Surgery Procedure, Year, and Place: Left shoulder, bone removal. knee surgery 1970s - Family History Known Family History: Negative: Cardiac Disease, Hypertension, Diabetes - Social History Alcohol Use: None Substance Use Type: None Smoking Status (MU): Never Smoked Tobacco - Immunization History Most Recent Influenza Vaccination: unknown Most Recent Pneumonia Vaccination: unknown Review of Systems All Other Systems Reviewed And Are Negative: Yes Constitutional: Positive: Negative Skin: Positive: Rash Respiratory: Positive: Negative Cardiovascular: Positive: Negative Gastrointestinal: Positive: Negative Musculoskeletal: Positive: Negative Neurological/Mental Status: Positive: Negative Physical Exam - Summary Physical Exam Summary: Vital Signs Reviewed: Yes A+Ox3, no distress, well-appearing Eyes: Conjunctiva Clear ENT: Hearing grossly normal neck: supple Respiratory: Positive: No respiratory distress, No accessory muscle use Cardiovascular: skin color reflect adequate perfusion Musculoskeletal Exam: MENENDEZ x 4 without difficulty Neurological: Positive: Alert, ambulatory without difficulty Psychological: Positive: age appropriate behavior Skin: Positive: large area of erythema and warmth overlying posterior shoulder/ scapula with central induration, no drainage or bleeding, no fluctuance, nontender, not well demarcated Vital Signs: Initial Vital Signs Temp 98.3 F 02/15/20 11:42 Pulse 62 02/15/20 11:42 Resp 16 02/15/20 11:42 BP 165/96 02/15/20 11:42 Pulse Ox 99 02/15/20 11:42 Course/Dx - Course Course Of Treatment: Discussed cellulitis with patient. He received IM injection of rocephin given the extensiveness of infection. I also placed him on bactrim which he was instructed to begin today. An outline was placed around the erythema. I informed him that he should go to the ED if erythema spreading after 24 hours of antibiotic or if he experiences any new or worsening symptoms. Patient voiced understanding and agreed with treatment plan. - Diagnoses Provider Diagnosis: Cellulitis of skin of back Discharge ED - Sign-Out/Discharge Documenting (check all that apply): Patient Departure All imaging exams completed and their final reports reviewed: No Studies - Discharge Plan Condition: Stable Disposition: HOME Prescriptions: Sulfamethox/Trimethoprim DS* [Bactrim DS 800/160 TAB*] 1 tab PO BID #20 tab Patient Education Materials: Cellulitis (ED) Referrals: No Primary Care Phys,NOPCP [Primary Care Provider] - Additional Instructions: As discussed, take bactrim as prescribed for the treatment of your skin infection. Keep the area clean and dry. An outline was drawn around your infection while you were here today to help you monitor the infection. You should go to the emergency room if you experience new or worsening symptoms , including fever, drainage, nausea and vomiting, or increasing redness and warmth that continues to extend past the outline after taking the antibiotic for 24 hours. - Billing Disposition and Condition Condition: STABLE Disposition: Home
== END 2020-02-15 12:55 | disposition home or self-care (01) ==
LOC: UCEAST 11:24
DX: L03.312 Cellulitis of back [any part except buttock and flank] (principal)
CPT/HCPCS: 96372; 99212; G0463; J0696